=== PATIENT | female | born 1990 | race Caucasian/White ===

== ENCOUNTER 2018-09-24 05:31 | Inpatient (IN) | payer OTHER ==
[2018-09-19 10:10] LABS: APPEARANCE,URINE CLEAR; BILIRUBIN,URINE NEGATIVE (NEGATIVE); COLOR,URINE YELLOW; GLUCOSE, URINE NEGATIVE (NEGATIVE); KETONES,URINE NEGATIVE (NEGATIVE); LEUKOCYTE ESTERASE,URINE NEGATIVE (NEGATIVE); NITRITE,URINE NEGATIVE (NEGATIVE); PROTEIN,URINE NEGATIVE (NEGATIVE); URINE SPECIFIC GRAVITY 1.013; UROBILINOGEN,URINE NEGATIVE mg/dL (<2.0)
[2018-09-19 10:15] LABS: ABSOLUTE EOSINOPHILS # (AUTO) 0.1 10^3/uL (0.0-0.6); ABSOLUTE LYMPHOCYTES (AUTO) 1.4 10^3/uL (0.5-4.7); ABSOLUTE MONOCYTES (AUTO) 0.7 10^3/uL (0.1-1.4); ABSOLUTE NEUT (AUTO) 7.2 10^3/uL (1.7-8.2); BASOPHILS % (AUTO) 0.2 % (0-2); HEMATOCRIT 34.6 % (36.0-47.0); HEMOGLOBIN 12.5 g/dL (12.0-15.5); LYMPHOCYTES % (AUTO) 15.3 % (13-45); MEAN CORPUSCULAR HEMOGLOBIN 33.8 pg (27.0-33.4); MEAN CORPUSCULAR VOLUME 94 fl (80-97); MONOCYTES % (AUTO) 7.9 % (3-13); PLATELET COUNT 195 10^3/uL (150-450); RED BLOOD COUNT 3.69 10^6/uL (3.72-5.28); RED CELL DISTRIBUTION WIDTH 12.3 % (11.5-14.0); SEGMENTED NEUTROPHILS % (AUTO) 75.6 % (42-78); TOTAL CELLS COUNTED % (AUTO) 100 %; WHITE BLOOD COUNT 9.5 10^3/uL (4.0-10.5)
[2018-09-19 10:29] LABS: URINE AMPHETAMINES SCREEN NEGATIVE; URINE BARBITURATES SCREEN NEGATIVE; URINE BENZODIAZEPINES SCREEN NEGATIVE; URINE COCAINE SCREEN NEGATIVE; URINE MARIJUANA (THC) SCREEN NEGATIVE; URINE METHADONE SCREEN NEGATIVE; URINE PHENCYCLIDINE SCREEN NEGATIVE
[~2018-09-24 05:31] MED LIST: CEFAZOLIN 1 GM/D5W RTU 1 GM/50 ML RTUPB IV PRN; LACTATED RINGERS 1000 ML IV PRN; LIDOCAINE 0.5% INJ-PF (5 MG/ML) 50 ML SDV SUBCUT PRN; RINGERS SOLUTION,LACTATED 1,000 ML IV ONE
[2018-09-24] MEDS ORDERED: MIDAZOLAM 2 MG/2 ML INJ ONE (07:24)
[2018-09-24] MEDS ORDERED: FENTANYL CITRATE INJ/PF 100 MCG/2 ML AMPUL ONE ×3 (07:24→09:13)
[2018-09-24] MEDS ORDERED: EPHEDRINE SULFATE INJ 50 MG/1 ML AMPULE ONE (07:25)
[2018-09-24] MEDS ORDERED: PROPOFOL INJ 200 MG/20 ML VIAL IV ONE (07:25)
[2018-09-24] MEDS ORDERED: BUPIVACAINE HCL/DEX-WATER/PF 15 MG/2 ML AMPULE ONE (07:26)
[2018-09-24] MEDS ORDERED: OXYTOCIN 10 UNIT/ML VIAL ONE ×2 (07:26→09:08)
[2018-09-24] MEDS ORDERED: DIPHENHYDRAMINE HCL 50 MG/ML VIAL IV PRN (08:35)
[2018-09-24] MEDS ORDERED: PROMETHAZINE HCL INJ 25 MG/1 ML VIAL IV PRN ×3 (08:35→09:13)
[2018-09-24] MEDS ORDERED: FENTANYL CITRATE INJ/PF 100 MCG/2 ML AMPUL IV PRN ×3 (08:35)
[2018-09-24] MEDS ORDERED: OXYCODONE-ACETAMINOPHEN 5-325 MG TABLET PO PRN ×4 (08:35→09:13)
[2018-09-24] MEDS ORDERED: DIPH/PERTUSS(ACELL)/TETANUS VAC/PF 0.5 ML SYR (>=10YO) IM PRN (09:13)
[2018-09-24] MEDS ORDERED: SIMETHICONE 80 MG TAB.CHEW PO PRN (09:13)
[2018-09-24] MEDS ORDERED: ACETAMINOPHEN 325 MG TABLET PO PRN (09:13)
[2018-09-24] MEDS ORDERED: RINGERS SOLUTION,LACTATED 1,000 ML IV PRN (09:13)
[2018-09-24] MEDS ORDERED: MEASLES,MUMPS&RUBELLA VACC/PF 0.5 ML VIAL SUBCUT PRN (09:13)
[2018-09-24] MEDS ORDERED: OXYTOCIN/NORMAL SALINE 20 UNIT/1,000 ML RTUINJ IV PRN (09:13)
[2018-09-24] MEDS ORDERED: MORPHINE SULFATE 10 MG/ML INJ IV PRN (09:13)
[2018-09-24] MEDS ORDERED: ACETAMINOPHEN 1,000 MG/100 ML RTUPB IV PRN (09:13)
--- NOTE | 2018-09-24 09:33 | PDOC DELIVERY SUMMARY ---
Delivery Summary - Maternal Hx : II Hx Para: I Hx # Term Pregnancies: 1 MEGHAN: 09/29/18 Gestational Age: 39+2 Risk Factors: Other Ruptured Membranes: SROM Time of Rupture: 08:24 Fluids: Clear - Delivery Labor: Not In Labor - history of implanted spinal cord stimulator Presentation: Vertex Heart Rate Monitoring: Done Pre-Operatively Support Person Present: No - PT HAD GENERAL ANESTEHSIA Location: OR : Scheduled Placenta: Within Normal Limits Delivery of Placenta Date: 09/24/18 Delivery of Placenta Time: 08:25 - Medications Type of Anesthesia:: GA - Assess and Care Baby 1 Male Delivery of Date: 09/24/18 Delivery of Time: 08:24 at 1 minute: 9 at 5 minutes: 9 Preprinted Number On Band: [id number] Infant Skin to Skin: No - MOTHER UNDER GENERAL ANESTHESIA To Nursery At: 08:29 Mode of Transport: Bassinet Delivery Weight: 3,345 Infant Delivery Length: 20.5 in - Delivery Personnel HAT DESIGNER: JERRY FRANK RN: EMMA WALSH MD: MARILU CID
[2018-09-24] MEDS ORDERED: MORPHINE SULFATE 10 MG/ML INJ ONE (09:43)
[2018-09-24] MEDS ORDERED: PROMETHAZINE HCL INJ 25 MG/1 ML VIAL ONE (09:57)
[2018-09-24] MEDS ORDERED: (PENDING PHARMACY ID) (Prenatal No122/Iron/Folic Acid [Prenatal Multi Tablet] 1 EACH) PO SCH (10:00)
--- NOTE | 2018-09-24 10:02 | OPERATIVE REPORT E ---
Operative Report NAME: ALTHEA YOUNG : 1990 AGE: 27Y DATE OF SURGERY: 09/24/2018 ROOM: 213 PREOPERATIVE DIAGNOSIS: INTRAUTERINE AT 39 WEEKS AND 1 DAY. HISTORY OF PREVIOUSLY IMPLANTED SPINAL CORD STIMULATOR. POSTOPERATIVE DIAGNOSIS: INTRAUTERINE AT 39 WEEKS AND 1 DAY. HISTORY OF PREVIOUSLY IMPLANTED SPINAL CORD STIMULATOR. SURGEON: MARILU CID M.D. ANESTHESIA: Dr. Rubin Sanabria with general. FINDINGS: Male in cephalic presentation with Apgars of 9 and 9, weight 7 pounds 6 ounces. COMPLICATIONS: None. ESTIMATED BLOOD LOSS: 700 mL. SPECIMENS REMOVED: None. PROCEDURE: A low transverse hysterotomy section. PROCEDURE IN DETAIL: The patient was taken to the operating room and prepared and draped in the normal sterile fashion in the supine position with a leftward tilt. Once anesthesia was established, a transverse skin incision was made with the scalpel and carried through to the underlying layer of fascia. With the same scalpel, the fascia was divided and the peritoneal cavity was entered bluntly with surgeon finger fracture. Bladder blade was inserted. The hysterotomy was nicked with a scalpel and the was then delivered expeditiously. The nose and mouth were suctioned with a suction bulb. The cord was clamped and cut and the infant was handed off to awaiting pediatricians. The cord blood was collected. The placenta was removed manually. The uterus was exteriorized and cleared of clots and debris. The hysterotomy was closed with 0 Monocryl in a running, locked fashion and a second layer of the same suture was used to imbricate to ensure hemostasis. The uterus was returned to the abdomen and the peritoneal cavity was cleared of clots and debris. The rectus muscle and peritoneum were reapproximated with a mattress stitch of 2-0 Chromic. The fascia was closed with 0-Vicryl. The subcutaneous layer was closed with plain catgut and the skin was closed with 4-0 Vicryl. The patient tolerated the procedure well. Sponge, lap, and needle counts were correct x2, and the patient was taken to recovery in stable condition. DICTATING PHYSICIAN: MARILU CID M.D. [id number] PHY#: [id number] ID: [id number] JOB#: [id number] ACCT: [id number] cc:MARILU CID M.D. >
[2018-09-24] MEDS ORDERED: MEPERIDINE HCL/PF INJ 25 MG/1 ML DISP.SYRIN ONE (10:17)
[2018-09-24] MEDS: MEPERIDINE HCL/PF INJ 25 MG/1 ML DISP.SYRIN IV PRN ×2 (10:19→10:25)
[2018-09-24] MEDS ORDERED: KETOROLAC TROMETHAMINE INJ/PF 30 MG/1 ML SDV ONE (10:23)
[2018-09-24] MEDS: KETOROLAC TROMETHAMINE INJ/PF 30 MG/1 ML SDV IV SCH ×2 (10:25→17:18)
[2018-09-24] MEDS: DOCUSATE SODIUM 100 MG CAPSULE PO SCH (17:18)
[2018-09-25] MEDS ORDERED: HYDROCODONE/ACETAMINOPHEN 5-325 MG TABLET PO PRN (00:58)
[2018-09-25] MEDS: KETOROLAC TROMETHAMINE INJ/PF 30 MG/1 ML SDV IV SCH (01:09)
[2018-09-25] MEDS: HYDROCODONE/ACETAMINOPHEN 5-325 MG TABLET PO PRN ×3 (01:09→16:44)
[2018-09-25] MEDS ORDERED: IBUPROFEN 800 MG TABLET PO SCH (06:00)
[2018-09-25 06:31] LABS: HEMATOCRIT 25.6 % (36.0-47.0); HEMOGLOBIN 9.2 g/dL (12.0-15.5); MEAN CORPUSCULAR VOLUME 95 fl (80-97); PLATELET COUNT 138 10^3/uL (150-450); RED BLOOD COUNT 2.71 10^6/uL (3.72-5.28); RED CELL DISTRIBUTION WIDTH 12.4 % (11.5-14.0); WHITE BLOOD COUNT 9.8 10^3/uL (4.0-10.5)
[2018-09-25] MEDS: DOCUSATE SODIUM 100 MG CAPSULE PO SCH ×2 (09:30→18:30)
[2018-09-25] MEDS: PRENATAL VITAMIN W DHA CAPSULE PO SCH (09:30)
[2018-09-25] MEDS: FERROUS SULFATE 325 MG TABLET PO SCH (09:30)
[2018-09-25] MEDS: METOPROLOL SUCCINATE 25 MG TAB.SR.24H PO SCH (09:31)
--- NOTE | 2018-09-25 14:39 | PDOC PROGRESS REPORT ---
Subjective-OB Progress Note for:: 09/25/18 Subjective: 27yo G2 now P2 s/p primary ppd1. Pt. ambulating, voiding and bresatfeeding without difficulty. Denies concerns at this time. Pain well controlled with medications. Physical Exam (OB) Vital Signs: Temp Pulse Resp BP Pulse Ox 98.0 F 84 16 119/79 98 09/25/18 11:17 09/25/18 11:17 09/25/18 11:17 09/25/18 11:17 09/25/18 11:17 Intake & Output 09/24/18 09/25/18 09/26/18 06:59 06:59 06:59 Intake Total 1680 920 Output Total 1000 Balance 680 920 Weight 81.647 kg - General General Appearance: Appears well In distress: None - PIH/Pre-Eclampsia DTR's: 2 + Clonus: Negative Headache: Absent Epigastric Pain: No Visual Changes: No - Dressing Removed: No Incision: Dressing Closure Type: Surgical Glue - Lochia Lochia Amount: Scant < 10 ml Lochia Color: Rubra/Red - Abdomen Description: Tender, Soft Hernia Present: No Fundal Description: Firm, Midline Fundal Height: u/u - u/2 - Respiratory Respiratory Status: No respiratory distress - Extremities Upper extremity: Normal inspection Lower extremities: Normal inspection - Neurological Cognition: Normal Orientation: AAOx4 - Psychological Associated symptoms: Normal affect, Normal mood Objective-Diagnostic Laboratory: 09/25/18 06:15 09/25/18 06:15 WBC 9.8 RBC 2.71 L Hgb 9.2 L Hct 25.6 L MCV 95 MCH 34.0 H MCHC 36.0 RDW 12.4 Plt Count 138 L Assessment and Plan(PN) - Assessment and Plan (1) Acute blood loss anemia Is this a current diagnosis for this admission?: Yes Plan: increase dietary iron and feso4 bid (2) Qualifiers: Weeks of gestation: 39 weeks Qualified Code(s): Z3A.39 - 39 weeks gestation of Is this a current diagnosis for this admission?: Yes Plan: delivered (3) S/P primary low transverse Is this a current diagnosis for this admission?: Yes Plan: routine pp care, continue to monitor for s/s of infection - Time Spent with Patient Time with patient: Less than 15 minutes Medications reviewed and adjusted accordingly: Yes - Disposition Anticipated Discharge: Home Within: within 24 hours
[2018-09-26] MEDS: HYDROCODONE/ACETAMINOPHEN 5-325 MG TABLET PO PRN ×2 (04:30→10:21)
[2018-09-26 08:53] VITALS: BP 118/72
--- NOTE | 2018-09-26 08:53 | PDOC DISCHARGE SUMMARY ---
Final Diagnosis Discharge Date: 09/26/18 - Final Diagnosis (1) Acute blood loss anemia Is this a current diagnosis for this admission?: Yes (2) Is this a current diagnosis for this admission?: Yes (3) S/P primary low transverse Is this a current diagnosis for this admission?: Yes Discharge Data - Discharge Medication Prescriptions: Hydrocodone/Acetaminophen [Wayne 5-325 mg Tablet] 1 tab PO Q4HP PRN #20 tablet PRN Reason: For Pain Scale 3-5 Docusate Sodium [Colace 100 mg Capsule] 100 mg PO BID #60 capsule Ferrous Sulfate [Iron] 325 mg PO BID #60 tablet Home Medications: Metoprolol Succinate [Toprol Xl] 25 mg PO DAILY 09/19/18 No122/Iron/Folic Acid [ Multi Tablet] 1 each PO DAILY 09/19/18 Docusate Sodium [Colace 100 mg Capsule] 100 mg PO BID #60 capsule 09/26/18 Ferrous Sulfate [Iron] 325 mg PO BID #60 tablet 09/26/18 Hydrocodone/Acetaminophen [Wayne 5-325 mg Tablet] 1 tab PO Q4HP PRN #20 tablet 09/26/18 Reason(s) for Admission: Ceasarean Section-Primary Procedures: NST, Ultrasound Intrapartum Procedure(s): : Low Cervical, Transverse - Diagnosis Test Laboratory: Temp Pulse Resp BP Pulse Ox 97.9 F 76 18 111/65 98 09/26/18 04:34 09/26/18 04:34 09/26/18 04:34 09/26/18 04:34 09/26/18 04:34 09/19/18 09/19/18 09/25/18 09:30 09:37 06:15 RBC 3.69 L 2.71 L Hgb 12.5 9.2 L Hct 34.6 L 25.6 L Urine Opiates Screen NEGATIVE - Discharge information/Instructions Discharge Activity: Activity As Tolerated, Balance Activity w/Rest, No Driving, No Lifting Over 10 Pounds, No Lifting/Push/Pulling, Pelvic Rest, No tub bath, Walk Frequently Discharge Diet: As Tolerated, Regular Disposition: HOME, SELF-CARE Follow up with: [facility] in: 1, Weeks - incision check
[2018-09-26] MEDS: METOPROLOL SUCCINATE 25 MG TAB.SR.24H PO SCH (10:18)
[2018-09-26] MEDS: FERROUS SULFATE 325 MG TABLET PO SCH (10:18)
[2018-09-26] MEDS: PRENATAL VITAMIN W DHA CAPSULE PO SCH (10:18)
[2018-09-26] MEDS: DOCUSATE SODIUM 100 MG CAPSULE PO SCH (10:18)
== END 2018-09-26 12:20 | disposition home or self-care (01) | DRG 787 ==
LOC: 2N 05:31
PROVIDERS: ADMIT Obstetrics & Gynecology; ATTEND Obstetrics & Gynecology
PROC: 10D00Z1 Extraction of Products of Conception, Low, Open Approach (ICD-10-PCS; principal; 2018-09-24 07:45)
DX: O75.89 Other specified complications of labor and delivery (principal); G90.59 Complex regional pain syndrome I of other specified site; D62 Acute posthemorrhagic anemia; O99.02 Anemia complicating childbirth; Z96.89 Presence of other specified functional implants; Z3A.39 39 weeks gestation of pregnancy; Z37.0 Single live birth
CPT/HCPCS: 1961; 36415; 80307; 81001; 85025; 85027; 86850; 86900; 86901; 94799; J1885; J2175; J2250; J2270; J2550; J2590; J2704; J3010; J3490; J7120